=== PATIENT | female | born 1940 | race Caucasian/White ===

== ENCOUNTER 2019-09-10 13:55 | Emergency (ER) | payer OTHER, BC ==
[~2019-09-10] VITALS: Ht 177.8 cm; Wt 74.8 kg
[2019-09-10 14:49] LABS: URINE BILIRUBIN NEGATIVE (Negative); URINE BLOOD NEGATIVE (Negative); URINE CLARITY CLEAR; URINE COLOR YELLOW; URINE GLUCOSE-RANDOM* NEGATIVE (Negative); URINE KETONES NEGATIVE (Negative); URINE LEUKOCYTES-REFLEX NEGATIVE (Negative); URINE NITRITE-REFLEX NEGATIVE (Negative); URINE PROTEIN (DIPSTICK) NEGATIVE (Negative); URINE SPECIFIC GRAVITY >= 1.030 (1.005-1.035); URINE UROBILINOGEN 0.2 E.U./dl (0.2-1.0)
[2019-09-10 14:58] LABS: HEMATOCRIT 38.3 % (37.0-47.0); HEMOGLOBIN 12.8 gm/dL (12.0-15.0); MCH 29.7 pg (26.0-34.0); MCHC 33.3 g/dL (28.0-37.0); MCV 89.3 fL (80.0-100.0); RBC 4.29 mil/uL (4.20-5.00); RDW 13.2 % (10.5-14.5); WBC 11.3 thou/uL (4.0-11.0)
[2019-09-10 15:07] LABS: AMP/METHAMP Negative (Negative); BARBITURATES Negative (Negative); BENZODIAZEPINES POSITIVE (Negative); COCAINE Negative (Negative); METHADONE Negative (Negative); OPIATES Negative (Negative); PCP Negative (Negative)
[2019-09-10 15:55] LABS: ABSOLUTE NEUTROPHILS 8.4 thou/uL (1.4-8.2); PLATELET COUNT 213 thou/uL (150-400); PLATELET ESTIMATE NORMAL
--- NOTE | 2019-09-10 17:29 | EKG ---
[place] [address] [facility] [place] [address] ELECTROCARDIOGRAM REPORT Name: GENE STEIN Room #: REG Mandi#: [id number] Admission: 09/10/19 Attend Phys: Discharge: Date of : 44 Report #: [id number] THIS REPORT FOR: //name// [facility] ED Test Date: 2019-09-10 Test Time: 14:36:15 Pat Name: GENE STEIN Department: Room: Gender: F Formulation Technician: LOREE : 1940 Requested By: Claude Rodrigez Order Number: [id number] MD: Elroy Mendez Measurements Intervals [place] Rate: 56 P: 23 HI: 218 QRS: -9 QRSD: 85 T: 56 QT: 437 QTc: 422 Interpretive Statements Sinus rhythm Borderline prolonged HI interval RSR' in V1 or V2, right VCD or RVH No previous ECG available for comparison Electronically Signed On 09-10-2019 17:28:58 [employer] by Elroy Mendez [email or web address] <ELECTRONICALLY SIGNED> By: Elroy Mendez MD 09/10/19 1728 1436 [id number] MD SUSAN العلي
[2019-09-10 18:31] LABS: ANION GAP 9 mmol/L (7-16); BUN 20 mg/dL (7-18); CALCIUM 9.2 mg/dL (8.5-10.1); CHLORIDE 106 mmol/L (98-107); CO2 28 mmol/L (21-32); GLUCOSE 91 mg/dL (74-106); POTASSIUM 3.9 mmol/L (3.5-5.1); SODIUM 143 mmol/L (136-145)
[2019-09-10 18:40] LABS: TROPONIN-I <0.06 ng/mL (<0.06)
[2019-09-10 19:12] VITALS: BP 133/69
== END 2019-09-10 19:13 | disposition home or self-care (01) ==
LOC: ER 13:55
PROVIDERS: Emergency Medicine
DX: F41.9 Anxiety disorder, unspecified (principal); F32.9 Major depressive disorder, single episode, unspecified; Z90.49 Acquired absence of other specified parts of digestive tract; Z79.899 Other long term (current) drug therapy